=== PATIENT | female | born 1970 | race Caucasian/White ===

== ENCOUNTER 2024-07-01 14:55 | Outpatient (CLI) | payer OTHER | END 2024-07-01 14:56 | disposition home or self-care (01) | LOC: CSHCP 14:55 | PROVIDERS: ATTEND Internal Medicine | DX: G47.30 Sleep apnea, unspecified (principal); J44.9 Chronic obstructive pulmonary disease, unspecified | CPT/HCPCS: 94060; 94664; 94726; 94729; 94760 ==

== ENCOUNTER 2024-07-19 09:18 | Outpatient (CLI) | payer OTHER | END 2024-07-19 09:19 | disposition home or self-care (01) | LOC: CSHSLEEP 09:18 | PROVIDERS: ATTEND Internal Medicine | DX: G47.33 Obstructive sleep apnea (adult) (pediatric) (principal); R53.83 Other fatigue; R06.83 Snoring | CPT/HCPCS: 95800 ==

== ENCOUNTER 2025-04-14 09:39 | Outpatient (CLI) | payer OTHER | END 2025-04-14 09:40 | disposition home or self-care (01) | LOC: CSHMAMMO 09:39 | PROVIDERS: ATTEND Nurse Practitioner Family | DX: N64.4 Mastodynia (principal); N60.19 Diffuse cystic mastopathy of unspecified breast; Z98.890 Other specified postprocedural states | CPT/HCPCS: 77066; G0279 ==